=== PATIENT | female | born 1995 | race African-American/Black ===

== ENCOUNTER 2016-12-26 00:48 | Emergency (ER) | payer OTHER ==
[2016-12-26] MEDS: CEPHALEXIN 250 MG/5 ML BTL PO ONE (01:35)
[2016-12-26] MEDS ORDERED: CEPHALEXIN 250 MG CAPSULE ONE (01:37)
[2016-12-26] MEDS: DIPH,PERTUSS(ACELL),TET VAC/PF 0.5 ML DISP.SYRIN IM ONE (01:45)
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
[2016-12-26 02:09] VITALS: BP 118/68
== END 2016-12-26 02:00 | disposition home or self-care (01) ==
LOC: ED 00:48
DX: S61.214A Laceration without foreign body of right ring finger without damage to nail, initial encounter (principal); S61.216A Laceration without foreign body of right little finger without damage to nail, initial encounter; X58.XXXA Exposure to other specified factors, initial encounter; Y93.9 Activity, unspecified; Y99.9 Unspecified external cause status
CPT/HCPCS: 90471; 90715; 99283